=== PATIENT | female | born 2000 | race African-American/Black ===

== ENCOUNTER 2021-09-05 13:48 | Inpatient (IN) | payer MEDICAID ==
[~2021-09-05] VITALS: Ht 167.6 cm; Wt 118.8 kg
[2021-09-05] MEDS ORDERED: NALOXONE HCL 0.4 MG/ML 1ML VIAL IM PRN (15:15)
[2021-09-05] MEDS ORDERED: LIDOCAINE HCL 1% 20ML VIAL (Pyxis) INJ INFIL SCH (15:15)
[2021-09-05] MEDS ORDERED: CARBOPROST TROMETHAMINE 250 MCG/ML AMPUL IM PRN (15:15)
[2021-09-05] MEDS: LACTATED RINGERS 1,000 ML IV SCH (17:06)
[2021-09-05] MEDS: MISOPROSTOL 100MCG TABLET VG SCH ×2 (17:07→21:00)
[2021-09-05 17:37] LABS: CLARITY URINE CLEAR (CLEAR); COLOR URINE YELLOW (YELLOW); KETONES URINE TRACE (NEGATIVE); LEUKOCYTE ESTERASE URINE NEGATIVE (NEGATIVE); NITRITE URINE NEGATIVE (NEGATIVE); OCCULT BLOOD URINE NEGATIVE (NEGATIVE); PROTEIN URINE 1+ (NEGATIVE); SPECIFIC GRAVITY URINE 1.031 (1.005-1.030)
[2021-09-05 17:37] LABS: BASOPHILS % 0.3 % (0.0-2.0); EOSINOPHILS % 2.1 % (0.0-5.0); HEMATOCRIT. 32.1 % (36.0-48.0); HEMOGLOBIN. 10.1 g/dL (12.0-16.0); MEAN CORPUSCULAR VOLUME 72.9 fL (81.0-99.0); MEAN PLATELET VOLUME 8.1 fl (7.4-10.4); MONOCYTES % 6.6 % (2.0-8.0); PLATELET 342 x1000/uL (130-400); RED BLOOD CELL COUNT 4.41 mill/uL (4.2-5.4)
[2021-09-05 17:47] LABS: *AMPHETAMINES SCREEN URINE NEGATIVE (NEGATIVE); *BARBITURATES SCREEN URINE NEGATIVE (NEGATIVE); *BENZODIAZEPINES SCREEN URINE NEGATIVE (NEGATIVE); *COCAINE SCREEN URINE NEGATIVE (NEGATIVE); CANNABINOID URINE SCREEN NEGATIVE (NEGATIVE); METHADONE URINE SCREEN NEGATIVE (NEGATIVE); OPIATES URINE SCREEN NEGATIVE (NEGATIVE); PHENCYCLIDINE URINE SCREEN NEGATIVE (NEGATIVE)
[2021-09-05 17:49] LABS: INR 0.9; PROTHROMBIN TIME 9.7 sec (9.6-11.0)
[2021-09-05 17:56] LABS: CHLORIDE 107 mEq/L (98-107)
[2021-09-05 18:21] LABS: HEPATITIS B SURFACE ANTIGEN NEGATIVE
[2021-09-05] MEDS ORDERED: ROPIVACAINE HCL/PF EPIDURAL 200 ML EPI SCH (21:00)
[2021-09-05] MEDS ORDERED: MAGNESIUM 4 G PREMIX 100 ML IV NR (23:00)
[2021-09-06] MEDS: LACTATED RINGERS 1,000 ML IV SCH ×3 (01:00→14:32)
[2021-09-06] MEDS: MAGNESIUM 20 G PREMIX (L & D) 500 ML IV SCH ×2 (01:04→11:54)
[2021-09-06] MEDS: MISOPROSTOL 100MCG TABLET VG SCH (01:40)
[2021-09-06] MEDS: BUTORPHANOL TARTRATE 2 MG/ML VIAL IV PRN ×2 (03:55→05:52)
[2021-09-06] MEDS: OXYTOCIN 30 UNITS/500ML NS PMX 500 ML IV SCH ×3 (05:34→23:07)
[2021-09-06] MEDS ORDERED: ROPIVACAINE HCL/PF EPIDURAL 200 ML EPI SCH (07:15)
[2021-09-06] MEDS ORDERED: ROPIVACAINE HCL/PF EPIDURAL 200 ML EPI ONE (07:18)
[2021-09-06] MEDS ORDERED: LABETALOL HCL 5MG/ML VIAL 20ML IV PRN ×2 (16:30)
[2021-09-06] MEDS ORDERED: DIPHENHYDRAMINE 25MG CAPSULE PO PRN (22:15)
[2021-09-06] MEDS ORDERED: ACETAMINOPHEN WITH CODEINE 300/30MG TABLET PO PRN (22:15)
[2021-09-06] MEDS ORDERED: RHO(D) IMMUNE GLOBULIN 300 MCG/SYR IM PRN (22:15)
[2021-09-06] MEDS ORDERED: GLYCERIN/WITCH HAZEL LEAF MEDICATED PAD TOP PRN (22:15)
[2021-09-06] MEDS ORDERED: BISACODYL 10MG SUPP PR PRN (22:15)
[2021-09-06] MEDS ORDERED: MAGNESIUM 20 G PREMIX (L & D) 500 ML IV SCH (22:15)
[2021-09-06] MEDS ORDERED: LANOLIN OINT 7GM TUBE TOP PRN (22:15)
[2021-09-06] MEDS ORDERED: IBUPROFEN 400MG TABLET PO PRN (22:15)
[2021-09-06] MEDS ORDERED: BENZOCAINE/LANOLIN/ALOE VERA SPRAY TOP PRN (22:15)
[2021-09-06] MEDS ORDERED: OXYTOCIN 30 UNITS/500ML NS PMX 500 ML IV SCH (22:15)
[2021-09-06] MEDS ORDERED: HEMORRHOIDAL SUPP PR PRN (22:15)
[2021-09-06] MEDS: IBUPROFEN 800MG TABLET PO PRN (22:44)
[2021-09-06 23:40] VITALS: BP 139/95
[2021-09-07] VITALS (8 sets, daily range): BP systolic 111–147; BP diastolic 52–92
[2021-09-07] MEDS: LABETALOL HCL 200MG TABLET PO SCH ×3 (00:25→21:46)
[2021-09-07 06:44] LABS: BASOPHILS % 0.2 % (0.0-2.0); EOSINOPHILS % 0.3 % (0.0-5.0); HEMATOCRIT. 25.7 % (36.0-48.0); HEMOGLOBIN. 8.4 g/dL (12.0-16.0); LYMPHOCYTES % 7.2 % (20.0-50.0); MEAN CORPUSCULAR VOLUME 70.5 fL (81.0-99.0); MEAN PLATELET VOLUME 8.3 fl (7.4-10.4); NEUTROPHILS % 84.3 % (40.0-76.0); PLATELET 289 x1000/uL (130-400); RED BLOOD CELL COUNT 3.64 mill/uL (4.2-5.4)
[2021-09-07] MEDS: PRENATAL VIT/FE FUMARATE/FA TABLET PO SCH (09:56)
[2021-09-07] MEDS: IBUPROFEN 800MG TABLET PO PRN (09:57)
[2021-09-07] MEDS: FERROUS SULFATE 325MG TABLET PO SCH ×2 (09:57→13:27)
[2021-09-07] MEDS: LACTATED RINGERS 1,000 ML IV SCH (11:20)
[2021-09-07] MEDS: SIMETHICONE 80MG TABLET CHEW PO SCH ×2 (13:27→21:44)
[2021-09-07] MEDS ORDERED: DOCUSATE SODIUM 100MG CAPSULE PO SCH (21:00)
[2021-09-08] VITALS: BP 125/84
[2021-09-08 04:00] VITALS: BP 141/66
[2021-09-08 06:18] VITALS: BP 126/69
[2021-09-08] MEDS: LABETALOL HCL 200MG TABLET PO SCH (08:59)
[2021-09-08] MEDS: PRENATAL VIT/FE FUMARATE/FA TABLET PO SCH (08:59)
[2021-09-08] MEDS: FERROUS SULFATE 325MG TABLET PO SCH (09:00)
[2021-09-08] MEDS: SIMETHICONE 80MG TABLET CHEW PO SCH (09:00)
[2021-09-08] MEDS ORDERED: LABE200T9 PO (14:09)
[2021-09-08] MEDS ORDERED: IBUP-2030 PO (14:09)
== END 2021-09-08 12:30 | disposition home or self-care (01) | DRG 560 ==
LOC: 8 EST LDRP 13:48 → OBSVTOIN 13:48 → 8EST 09-06 23:33
PROVIDERS: ADMIT Specialist; ATTEND Obstetrics & Gynecology
PROC: 10E0XZZ Delivery of Products of Conception, External Approach (ICD-10-PCS; principal; 2021-09-06)
PROC: 0KQM0ZZ Repair Perineum Muscle, Open Approach (ICD-10-PCS; 2021-09-06)
PROC: 3E0R3BZ Introduction of Anesthetic Agent into Spinal Canal, Percutaneous Approach (ICD-10-PCS; 2021-09-06)
PROC: 00HU33Z Insertion of Infusion Device into Spinal Canal, Percutaneous Approach (ICD-10-PCS; 2021-09-06)
PROC: 3E0234Z Introduction of Serum, Toxoid and Vaccine into Muscle, Percutaneous Approach (ICD-10-PCS; 2021-09-07)
DX: O13.4 Gestational [pregnancy-induced] hypertension without significant proteinuria, complicating childbirth (principal); Z37.0 Single live birth; O70.1 Second degree perineal laceration during delivery; Z20.822 Contact with and (suspected) exposure to COVID-19; Z3A.39 39 weeks gestation of pregnancy; Z23 Encounter for immunization
CPT/HCPCS: 36415; 76805; 76818; 80053; 80305; 81003; 83735; 84550; 85025; 85384; 86592; 86703; 86762; 86850; 86886; 86900; 87340; 87426; 90384; 99281; G0378; J0595; J2795; J3475; J3490; J7120; J2590; J2791